=== PATIENT | male | born 1965 | race African-American/Black ===

== ENCOUNTER 2018-01-06 07:28 | Emergency (ER) | payer SELFPAY ==
--- NOTE | 2018-01-06 07:59 | EDM.PDOC ---
ED HPI GENERAL MEDICAL PROBLEM - General Chief Complaint: Lower Extremity Injury/Pain Stated Complaint: JOINT PAIN Time Seen by Provider: 01/06/18 07:41 Source of Information: Reports: Patient History Limitations: Reports: No Limitations - History of Present Illness INITIAL COMMENTS - FREE TEXT/NARRATIVE: The patient presents with bilateral thumb pain and right knee pain. He has a history of gout and it is flaring up. He ran out of his indomethicin. He denies any injuries. He has no other symptoms. Onset: Gradual Duration: Day(s): Location: Reports: Upper Extremity, Left (thumb), Upper Extremity, Right (thumb) , Lower Extremity, Right (knee) Quality: Reports: Sharp Severity: Moderate Improves with: Reports: Immobilization Worsens with: Reports: Movement Associated Symptoms: Reports: No Other Symptoms Left Knee Pain Score (Numeric/FACES): 7 - Related Data Allergies Allergy/AdvReac Type Severity Reaction Status Date / Time No Known Allergies Allergy Verified 01/06/18 07:42 Home Meds: Home Meds Indomethacin 25 mg PO TID PRN #30 capsule 01/06/18 [Rx] Indomethacin [Indocin] 25 mg PO TID PRN 01/06/18 [History] predniSONE [Prednisone] 20 mg PO ASDIRECTED 01/06/18 [History] Past Medical History Cardiovascular History: Reports: High Cholesterol, Hypertension Musculoskeletal History: Reports: Gout - Past Surgical History GI Surgical History: Reports: Appendectomy Musculoskeletal Surgical History: Reports: Arthroscopic Knee Social & Family History - Tobacco Use Smoking Status *Q: Never Smoker - Caffeine Use Caffeine Use: Reports: Coffee, Tea - Recreational Drug Use Recreational Drug Use: No Review of Systems - Review of Systems Review Of Systems: See Below Constitutional: Reports: No Symptoms Eyes: Reports: No Symptoms Ears: Reports: No Symptoms Nose: Reports: No Symptoms Mouth/Throat: Reports: No Symptoms Respiratory: Reports: No Symptoms Cardiovascular: Reports: No Symptoms GI/Abdominal: Reports: No Symptoms Genitourinary: Reports: No Symptoms Musculoskeletal: Reports: Other (bilateral thumb pain and right knee pain) ED EXAM, GENERAL - Physical Exam Exam: See Below Exam Limited By: No Limitations General Appearance: Alert, No Apparent Distress Ears: Normal External Exam Nose: Normal Inspection Head: Atraumatic, Normocephalic Neck: Normal Inspection Respiratory/Chest: No Respiratory Distress, Lungs Clear, Normal Breath Sounds Cardiovascular: Regular Rate, Rhythm, No Edema, No Murmur GI/Abdominal: Soft, Non-Tender, No Organomegaly, No Mass Extremities: Other (Mild pain upon palpation to both thumbs. 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 Please return if you are worse.
== END 2018-01-06 08:12 | disposition home or self-care (01) ==
LOC: JD.ED 07:28
DX: M10.49 Other secondary gout, multiple sites (principal); I10 Essential (primary) hypertension
CPT/HCPCS: 99283